=== PATIENT | male | born 1975 | race African-American/Black ===

== ENCOUNTER 2022-10-13 17:16 | Inpatient (IN) | payer OTHER ==
[2022-10-13] MEDS ORDERED: methylPREDNISolone NA SUCC 125 MG/2 ML VIAL IVPB ONE (17:43)
[2022-10-13] MEDS ORDERED: SODIUM CHLORIDE 0.9% 1000 ML INFUS.BAG IV ONE (17:43)
[2022-10-13] MEDS ORDERED: FAMOTIDINE 20 MG/50 ML IVPB 20 MG/50 ML MG IVPB ONE ×2 (17:43→17:49)
[2022-10-13] MEDS ORDERED: EPINEPHrine 1:1,000 0.3 MG/0.3 ML SYR IM ONE ×2 (17:44→18:44)
[2022-10-13] MEDS ORDERED: EPINEPHrine/PF 1 MG/1 ML (1:1,000) AMPULE ONE (17:49)
[2022-10-13] MEDS ORDERED: methylPREDNISolone NA SUCC 125 MG/2 ML VIAL ONE (17:49)
[2022-10-13 18:57] LABS: INR 1.18 (0.83-1.09); PROTHROMBIN TIME (PATIENT) 13.7 SEC (9.7-13.0)
[2022-10-13 19:00] LABS: ACTIVATED PTT 28.8 SECONDS (25.2-36.5)
[2022-10-13 19:06] LABS: HEMATOCRIT 36.5 % (35.4-49); MCH 30.2 pg (25.7-33.7); MEAN CELL VOLUME 91.5 fl (80-96); MEAN PLT VOLUME 9.3 fl (7.5-11.1); PLATELET COUNT 336.8 10^3/uL (134-434); RBC 3.99 10^6/uL (4.00-5.60); RDW 13.4 % (11.9-15.9); WHITE BLOOD COUNT 7.8 10^3/uL (4.0-10.8)
[2022-10-13 19:11] LABS: ALBUMIN 3.5 g/dl (3.4-5.0); BLOOD UREA NITROGEN 12.7 mg/dl (7-18); CALCIUM 8.5 mg/dl (8.5-10.1); CREATININE 0.9 mg/dl (0.6-1.3); POTASSIUM 4.1 mmol/L (3.5-5.1); SGOT/AST 17.8 U/L (15-37); SGPT/ALT 15.2 U/L (7-52); TOT PROT 5.9 g/dl (6.4-8.2)
[2022-10-13 19:33] LABS: PLATELET ESTIMATE ADEQUATE
[2022-10-13 20:17] LABS: BILIRUBIN,TOTAL 0.6 mg/dL (0.2-1)
[2022-10-13] MEDS ORDERED: CHLORHEXIDINE GLUCONATE 4% CLEANSER FOR DECOLONIZATION TP SCH (22:00)
[2022-10-13] MEDS: HEPARIN NA (PORCINE) 5,000 UNITS/ML 1ML VIAL SQ SCH (22:08)
[2022-10-13] MEDS: methylPREDNISolone NA SUCC 40 MG/1 ML VIAL IVPUSH SCH (22:18)
[2022-10-13] MEDS: MUPIROCIN 2% TOPICAL OINTMENT FOR DECOLONIZATION NS SCH (22:27)
[2022-10-14 07:13] LABS: BASO % 0.2 % (0-2.0); EOS % 0.1 % (0-4.5); HEMATOCRIT 36.2 % (35.4-49); MCH 29.8 pg (25.7-33.7); MCHC 33.1 g/dl (32.0-35.9); MEAN CELL VOLUME 90.3 fl (80-96); MEAN PLT VOLUME 9.8 fl (7.5-11.1); MONO % 1.3 % (3.8-10.2); NEUT % 90.4 % (42.8-82.8); PLATELET COUNT 379 10^3/uL (134-434); RBC 4.01 M/mm3 (4.00-5.60); RDW 12.2 % (11.9-15.9); WHITE BLOOD COUNT 14.6 K/mm3 (4.0-10.0)
[2022-10-14 07:20] LABS: INR 1.18 (0.83-1.09); PROTHROMBIN TIME (PATIENT) 13.7 SEC (9.7-13.0)
[2022-10-14 07:22] LABS: ACTIVATED PTT 27.3 SECONDS (25.2-36.5)
[2022-10-14 07:25] LABS: POTASSIUM 4.6 mmol/L (3.5-5.1)
[2022-10-14 07:28] LABS: CALCIUM 8.7 mg/dL (8.5-10.1)
[2022-10-14 07:29] LABS: ALBUMIN 2.8 g/dl (3.4-5.0); BLOOD UREA NITROGEN 12.2 mg/dL (7-18); MAGNESIUM 2.1 mg/dL (1.8-2.4)
[2022-10-14 07:32] LABS: CREATININE 0.7 mg/dL (0.55-1.3); PHOSPHOROUS 3.5 mg/dL (2.5-4.9)
[2022-10-14 07:33] LABS: BILIRUBIN,TOTAL 0.5 mg/dL (0.2-1); TOT PROT 6.5 g/dl (6.4-8.2)
[2022-10-14] MEDS: methylPREDNISolone NA SUCC 40 MG/1 ML VIAL IVPUSH SCH ×2 (09:31→21:59)
[2022-10-14] MEDS: HEPARIN NA (PORCINE) 5,000 UNITS/ML 1ML VIAL SQ SCH ×2 (09:32→21:58)
[2022-10-14] MEDS: MUPIROCIN 2% TOPICAL OINTMENT FOR DECOLONIZATION NS SCH (09:47)
[2022-10-14] MEDS ORDERED: FAMOTIDINE 20 MG/50 ML IVPB 20 MG/50 ML MG IVPB SCH (10:00)
[2022-10-14 15:41] VITALS: BMI 32.1
[2022-10-14] MEDS: FAMOTIDINE 20 MG/50 ML IVPB 20 MG/50 ML MG IVPB SCH (21:57)
[2022-10-14] MEDS ORDERED: CHLORHEXIDINE GLUCONATE 4% CLEANSER FOR DECOLONIZATION TP SCH (22:00)
[2022-10-14] MEDS ORDERED: MUPIROCIN 2% TOPICAL OINTMENT FOR DECOLONIZATION NS SCH (22:00)
[2022-10-15] MEDS: HEPARIN NA (PORCINE) 5,000 UNITS/ML 1ML VIAL SQ SCH ×2 (09:23→22:02)
[2022-10-15] MEDS: methylPREDNISolone NA SUCC 40 MG/1 ML VIAL IVPUSH SCH ×2 (09:24→22:03)
[2022-10-15] MEDS: FAMOTIDINE 20 MG/50 ML IVPB 20 MG/50 ML MG IVPB SCH ×2 (09:54→22:03)
[2022-10-15 11:17] LABS: HEMATOCRIT 36.4 % (35.4-49); HEMOGLOBIN 11.5 GM/dL (11.7-16.9); MCH 28.5 pg (25.7-33.7); MCHC 31.6 g/dl (32.0-35.9); MEAN PLT VOLUME 9.6 fl (7.5-11.1); PLATELET COUNT 482 10^3/uL (134-434); RBC 4.04 M/mm3 (4.00-5.60); RDW 12.2 % (11.9-15.9); WHITE BLOOD COUNT 26.7 K/mm3 (4.0-10.0)
[2022-10-15 11:52] LABS: ALBUMIN 3.1 g/dl (3.4-5.0); BLOOD UREA NITROGEN 16.8 mg/dL (7-18); CALCIUM 8.9 mg/dL (8.5-10.1)
[2022-10-15 11:55] LABS: CREATININE 0.8 mg/dL (0.55-1.3); PHOSPHOROUS 3.3 mg/dL (2.5-4.9)
[2022-10-15 11:56] LABS: BILIRUBIN,TOTAL 0.4 mg/dL (0.2-1); TOT PROT 6.8 g/dl (6.4-8.2)
[2022-10-15 12:03] LABS: MAGNESIUM 2.6 mg/dL (1.8-2.4)
[2022-10-15 12:08] LABS: ANISOCYTOSIS 0; HELMET CELLS 0; HOWELL-JOLLY BODIES 0; MACROCYTOSIS 0; OVALOCYTE 0; ROULEAU 0; SICKELED CELLS 0; TARGET CELLS 0; TEAR DROP CELLS 0; TOXIC GRANULATION 0
[2022-10-15] MEDS ORDERED: CALAMINE 8% TOPICAL LOTION 177 ML BOTTLE TP PRN (17:37)
[2022-10-16] MEDS: FAMOTIDINE 20 MG/50 ML IVPB 20 MG/50 ML MG IVPB SCH (10:25)
[2022-10-16] MEDS: methylPREDNISolone NA SUCC 40 MG/1 ML VIAL IVPUSH SCH (10:25)
[2022-10-16] MEDS: HEPARIN NA (PORCINE) 5,000 UNITS/ML 1ML VIAL SQ SCH (10:33)
[2022-10-16 11:29] LABS: HEMATOCRIT 35.9 % (35.4-49); HEMOGLOBIN 11.8 GM/dL (11.7-16.9); MCH 29.5 pg (25.7-33.7); MEAN CELL VOLUME 89.3 fl (80-96); MEAN PLT VOLUME 9.3 fl (7.5-11.1); PLATELET COUNT 434 10^3/uL (134-434); RBC 4.02 M/mm3 (4.00-5.60); RDW 12.3 % (11.9-15.9); WHITE BLOOD COUNT 24.4 K/mm3 (4.0-10.0)
[2022-10-16 11:46] LABS: POTASSIUM 4.7 mmol/L (3.5-5.1)
[2022-10-16 12:04] VITALS: BP 142/58; PULSE 85; RESP 18; TEMP 97.9
[2022-10-16 12:09] LABS: ANISOCYTOSIS 0; HELMET CELLS 0; HOWELL-JOLLY BODIES 0; MACROCYTOSIS 0; OVALOCYTE 0; ROULEAU 0; SICKELED CELLS 0; TARGET CELLS 0; TEAR DROP CELLS 0; TOXIC GRANULATION 0
[2022-10-16 12:31] LABS: ALBUMIN 3.1 g/dl (3.4-5.0); BLOOD UREA NITROGEN 14.1 mg/dL (7-18); CALCIUM 8.9 mg/dL (8.5-10.1)
[2022-10-16 12:34] LABS: CREATININE 0.9 mg/dL (0.55-1.3)
[2022-10-16 12:35] LABS: BILIRUBIN,TOTAL 0.5 mg/dL (0.2-1)
[2022-10-16 12:36] LABS: TOT PROT 6.6 g/dl (6.4-8.2)
[2022-10-19 13:08] LABS: JO-1 ANTIBODY <0.2 AI (0.0-0.9)
[2022-10-19 22:07] LABS: GLIADIN ANTIBODY IGA 14 units (0-19); GLIADIN ANTIBODY IGG 2 units (0-19); TRANSGLUTAMINASE IGG 3 U/mL (0-5)
[2022-10-20 19:07] LABS: ATYPICAL pANCA <1:20 titer (Neg:<1:20); C-ANCA <1:20 titer (Neg:<1:20)
== END 2022-10-16 15:22 | disposition home or self-care (01) | DRG 916 ==
LOC: FER 17:16 → JICU 20:52 → J6S 10-14 20:25
PROVIDERS: ADMIT Internal Medicine Pulmonary Disease; ATTEND Internal Medicine
DX: T78.3XXA Angioneurotic edema, initial encounter (principal); R49.0 Dysphonia; I10 Essential (primary) hypertension; R21 Rash and other nonspecific skin eruption; D75.839 Thrombocytosis, unspecified; D72.829 Elevated white blood cell count, unspecified
CPT/HCPCS: 0241U-QW; 36415; 71045-TC-FY; 80053; 82784; 83516; 83520; 83735; 84100; 84443; 85025; 85027; 85610; 85651; 85730; 86038; 86140; 86160; 86235; 86256; 86677; 93005; 93010; 99291; J0171; J1644